=== PATIENT | male | born 1970 | race Caucasian/White ===

== ENCOUNTER 2016-05-16 23:37 | Emergency (ER) | payer OTHER ==
[~2016-05-16] VITALS: Ht 170.2 cm; Wt 104.1 kg
[~2016-05-16 23:37] MED LIST: CEFUROXIME500 MG PO; CYMBALTA30 MG PO; CYMBALTA60 MG PO; FLEXERIL10 MG PO; MEDROL DOSEPAK4 MG PO; MOTRIN800 MG PO; NAPROSYN500 MG PO; NO HOME MEDS PO; PREDNISONE10 MG PO; ULTRAM50 MG PO; VALIUM5 MG PO; ZITHROMAX TRI-500 MG PO; ZOFRAN ODT4 MG PO; ZOFRAN ODT8 MG PO; ZOFRAN4 MG PO
[2016-05-17 02:22] LABS: HEMATOCRIT 43.6 % (38.0-50.0); MCH 29.7 PG (29.0-34.0); MCHC 34.9 G/DL (30.0-36.0); MCV 85.2 FL (86-99); MEAN PLAT.VOLUME 11.1 uM^3 (9.0-12.4); PLATELET COUNT 214 K/uL (156-360); RBC DIS.WIDTH-CV 13.7 % (11.8-14.6); RBC DIS.WIDTH-SD 42.3 % (39-53); RED BLOOD COUNT 5.12 M/uL (4.00-5.50); WHITE BLOOD COUNT 21.1 K/uL (4.1-10.2)
[2016-05-17 02:25] LABS: EOSINOPHIL (%) 0.7 % (0-5); EOSINOPHIL COUNT 0.1 K/uL (0-0.3); IMMATURE GRANULOCYTE (%) 0.4 % (0.0-0.7); IMMATURE GRANULOCYTE COUNT 0.8 K/uL; LYMPHOCYTE COUNT 4.8 K/uL (1.0-2.8); MONOCYTE (%) 7.8 % (3-12); MONOCYTE COUNT 1.6 K/uL (0-0.8); NEUTROPHIL (%) 68.4 % (45-76); NEUTROPHIL COUNT 14.5 K/uL (1.8-6.4)
[2016-05-17 02:34] LABS: CHLORIDE 107 mEq/L (99-109); POTASSIUM 3.9 mEq/L (3.7-5.4); SODIUM 141 mEq/L (136-147)
[2016-05-17 02:36] LABS: GLUCOSE 109 mg/dL (70-99)
[2016-05-17 02:37] LABS: ANION GAP 12 MEQ/L (2-14)
[2016-05-17 02:38] LABS: D-DIMER ELISA < 0.15 mg/L FEU (< 0.57); PROTHROMBIN TIME 10.3 (9.2-11.2); PTT 26.2 (25-32)
[2016-05-17 02:40] LABS: GFR ESTIMATE (CALCULATED) > 59 mL/min/
[2016-05-17 02:41] LABS: UREA NITROGEN (BUN) 19 mg/dL (9-23)
[2016-05-17 02:47] LABS: TROP-I INTERPRETATION NEGATIVE; TROPONIN-I 0.01 ng/mL (0.0-0.30)
[2016-05-17 04:01] LABS: TROP-I INTERPRETATION NEGATIVE; TROPONIN-I < 0.01 ng/mL (0.0-0.30)
[2016-05-17] MEDS ORDERED: ULTRAM50 MG PO (04:29)
[2016-05-17 04:37] VITALS: BP 112/89
== END 2016-05-17 04:37 | disposition home or self-care (01) ==
LOC: EME 23:37
PROVIDERS: Emergency Medicine
DX: M25.511 Pain in right shoulder (principal); F17.200 Nicotine dependence, unspecified, uncomplicated
CPT/HCPCS: 71010; 80048; 84484; 85025; 85379; 85610; 85730; 93005; 99281; 99284

== ENCOUNTER 2016-06-03 10:30 | Emergency (ER) | payer OTHER ==
[~2016-06-03] VITALS: Ht 172.7 cm; Wt 101.0 kg
[2016-06-03 12:31] LABS: HEMATOCRIT 46.3 % (38.0-50.0); MCH 29.4 PG (29.0-34.0); MCHC 34.1 G/DL (30.0-36.0); MCV 86.2 FL (86-99); MEAN PLAT.VOLUME 10.9 uM^3 (9.0-12.4); PLATELET COUNT 211 K/uL (156-360); RBC DIS.WIDTH-CV 13.7 % (11.8-14.6); RBC DIS.WIDTH-SD 42.9 % (39-53); RED BLOOD COUNT 5.37 M/uL (4.00-5.50); WHITE BLOOD COUNT 8.9 K/uL (4.1-10.2)
[2016-06-03 12:40] LABS: CHLORIDE 108 mEq/L (99-109); POTASSIUM 4.6 mEq/L (3.7-5.4); SODIUM 143 mEq/L (136-147)
[2016-06-03 12:42] LABS: GLUCOSE 94 mg/dL (70-99)
[2016-06-03 12:44] LABS: ANION GAP 8 MEQ/L (2-14)
[2016-06-03 12:46] LABS: TROP-I INTERPRETATION NEGATIVE; TROPONIN-I < 0.01 ng/mL (0.0-0.30)
[2016-06-03 12:46] LABS: GFR ESTIMATE (CALCULATED) > 59 mL/min/
[2016-06-03 12:47] LABS: UREA NITROGEN (BUN) 16 mg/dL (9-23)
[2016-06-03] MEDS ORDERED: OXAYDO5 MG PO (13:59)
[2016-06-03] MEDS ORDERED: BACLOFEN10 MG PO (13:59)
[2016-06-03] MEDS ORDERED: LIDODERM 5% P1 PATCH TD (13:59)
[2016-06-03 14:10] VITALS: BP 110/78
== END 2016-06-03 14:14 | disposition home or self-care (01) ==
LOC: EME 10:30
PROVIDERS: Nurse Practitioner Family
DX: S46.812A Strain of other muscles, fascia and tendons at shoulder and upper arm level, left arm, initial encounter (principal); R20.2 Paresthesia of skin; G89.29 Other chronic pain; Z72.0 Tobacco use
CPT/HCPCS: 80048; 84484; 85027; 93005; 99281; 99284; J3010; J7512

== ENCOUNTER 2017-08-08 06:26 | Emergency (ER) | payer OTHER ==
[~2017-08-08] VITALS: Ht 170.2 cm; Wt 100.0 kg
[~2017-08-08 06:26] MED LIST changes: +BACLOFEN10 MG PO; +LIDODERM 5% P1 PATCH TD; +OXAYDO5 MG PO
[2017-08-08 06:28] VITALS: BP 138/90
[2017-08-08] MEDS ORDERED: LIDODERM 5% P1 PATCH TD (07:01)
[2017-08-08] MEDS ORDERED: MEDROL DOSEPAK4 MG PO (07:01)
[2017-08-08] MEDS ORDERED: FLEXERIL10 MG PO (07:01)
== END 2017-08-08 07:14 | disposition home or self-care (01) ==
LOC: EME 06:26
DX: M54.40 Lumbago with sciatica, unspecified side (principal); F32.9 Major depressive disorder, single episode, unspecified; F17.200 Nicotine dependence, unspecified, uncomplicated
CPT/HCPCS: 99281; 99284; J7512

== ENCOUNTER 2017-08-10 12:03 | Emergency (ER) | payer OTHER ==
[~2017-08-10] VITALS: Ht 172.7 cm; Wt 98.0 kg
[2017-08-10] MEDS ORDERED: NAPROSYN500 MG PO (15:01)
[2017-08-10 15:14] VITALS: BP 113/78
== END 2017-08-10 15:14 | disposition home or self-care (01) ==
LOC: EME 12:03
DX: S39.012A Strain of muscle, fascia and tendon of lower back, initial encounter (principal); G40.909 Epilepsy, unspecified, not intractable, without status epilepticus; F32.9 Major depressive disorder, single episode, unspecified; F17.200 Nicotine dependence, unspecified, uncomplicated
CPT/HCPCS: 99281; 99284